=== PATIENT | female | born 1940 | race Caucasian/White ===

== ENCOUNTER → 2019-08-31 | Outpatient (CLI) | payer MEDICARE, OTHER | END | disposition home or self-care (01) | LOC: CVU 12:25 | PROVIDERS: ATTEND Internal Medicine Cardiovascular Disease | DX: I08.8 Other rheumatic multiple valve diseases (principal) | CPT/HCPCS: 93306; 93356 ==

== ENCOUNTER 2020-03-14 07:55 | Day surgery (SDC) | payer MEDICARE, OTHER ==
[~2020-03-14] VITALS: Ht 160 cm; Wt 77.1 kg
[~2020-03-14 07:55] MED LIST: BUPIVACAINE/PF 0.5% ONE; EPINEPHRINE 1 MG/ML, 1ML ONE; ROPIvacaine/PF 0.5%, 30 ML ONE; methylPREDNISolone*ACETATE* 80 MG/ML ONE
[2020-03-14] MEDS ORDERED: ROPIvacaine/PF 0.2%, 100ML 550 ML (check volume) INJ ONE (08:00)
[2020-03-14] MEDS ORDERED: ACETAMINOPHEN 500 MG TABLET PO ONE (09:00)
[2020-03-14] MEDS ORDERED: GABAPENTIN 300 MG CAPSULE PO ONE (09:00)
[2020-03-14] MEDS ORDERED: LACTATED RINGERS 1,000 ML IV SCH (09:00)
[2020-03-14] MEDS ORDERED: CHLORHEXIDINE 15 ML UDC MM ONE (09:00)
[2020-03-14 09:20] VITALS: BP 138/76
[2020-03-14 09:39] LABS: ALANINE AMINOTRANSFERASE 14 U/L (12-78); ALBUMIN 3.5 g/dL (3.4-5.0); ANION GAP 4 mmol/L (5-15); CHLORIDE 108 mmol/L (98-107); CREATININE 0.92 mg/dL (0.55-1.02)
[2020-03-14] MEDS ORDERED: MIDAZOLAM 1 MG/ML, 2ML ONE (09:39)
[2020-03-14] MEDS ORDERED: FENTANYL PF 100 MCG/2ML ONE (09:39)
[2020-03-14 09:41] LABS: ALKALINE PHOSPHATASE 57 U/L (45-117); BILIRUBIN,TOTAL 0.4 mg/dL (0.2-1.0); TOTAL PROTEIN 7.2 g/dL (6.4-8.2)
[2020-03-14] MEDS ORDERED: EZET10TA70 PO (09:47)
[2020-03-14] MEDS ORDERED: QUET50TA5 PO (09:47)
[2020-03-14] MEDS ORDERED: LEVO75TA5 PO (09:47)
[2020-03-14] MEDS ORDERED: VILA40TA PO (09:47)
[2020-03-14] MEDS ORDERED: RALO60TA PO (09:47)
[2020-03-14] MEDS ORDERED: CALC-680 PO (09:47)
[2020-03-14] MEDS ORDERED: CHOL10003 PO (09:47)
[2020-03-14] MEDS ORDERED: LISI-167 PO (09:47)
[2020-03-14] MEDS ORDERED: DICL100G19 TP (09:47)
[2020-03-14] MEDS ORDERED: CEFAZOLIN 1,000 MG ONE (10:29)
[2020-03-14] MEDS ORDERED: PROPOFOL 10 MG/ML, 20ML ONE (10:29)
[2020-03-14] MEDS ORDERED: ONDANSETRON 2MG/ML, 2ML IVPush PRN (11:00)
[2020-03-14] MEDS ORDERED: HYDROcodone/APAP 7.5-325MG/15ML UDC PO PRN (11:00)
[2020-03-14] MEDS ORDERED: FENTANYL PF 100 MCG/2ML IV PRN (11:00)
[2020-03-14] MEDS ORDERED: hydrALAzine 20 MG/ML, 1ML IV PRN (11:00)
[2020-03-14] MEDS ORDERED: LABETALOL 5MG/ML, 20ML IV PRN (11:00)
== END 2020-03-14 12:40 | disposition home or self-care (01) ==
LOC: OUT 07:55
PROVIDERS: ATTEND Orthopaedic Surgery
DX: T84.82XA Fibrosis due to internal orthopedic prosthetic devices, implants and grafts, initial encounter (principal); M25.661 Stiffness of right knee, not elsewhere classified; Z20.828 Contact with and (suspected) exposure to other viral communicable diseases; G89.18 Other acute postprocedural pain; I10 Essential (primary) hypertension; E78.5 Hyperlipidemia, unspecified; I25.2 Old myocardial infarction; M81.0 Age-related osteoporosis without current pathological fracture; E03.9 Hypothyroidism, unspecified; F32.9 Major depressive disorder, single episode, unspecified; Z79.890 Hormone replacement therapy; Z79.899 Other long term (current) drug therapy; Z88.5 Allergy status to narcotic agent; Z88.6 Allergy status to analgesic agent; Z88.8 Allergy status to other drugs, medicaments and biological substances; Z87.891 Personal history of nicotine dependence; Z82.61 Family history of arthritis; Z82.49 Family history of ischemic heart disease and other diseases of the circulatory system; Y83.8 Other surgical procedures as the cause of abnormal reaction of the patient, or of later complication, without mention of misadventure at the time of the procedure
CPT/HCPCS: 27570; 36415; 64447; 73564; 80053; 87635; 93005; J0690; J2250; J2704; J3010; J7120; J0171; J2795; J1040